=== PATIENT | female | born 2000 | race Caucasian/White ===

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

== ENCOUNTER 2019-01-15 22:40 | Emergency (ER) | payer OTHER ==
[2019-01-16 01:18] LABS: ADD UMIC YES; UR AMORPHOUS CRYSTAL FEW /HPF (NONE SEEN); UR ASCORBIC ACID NEGATIVE (NEGATIVE); UR BACTERIA FEW /HPF (NONE SEEN); UR BILIRUBIN (Dip) NEGATIVE (NEGATIVE); UR BLOOD (Dip) NEGATIVE (NEGATIVE); UR BUDDING YEAST FEW /HPF (NONE SEEN); UR CLARITY CLOUDY (CLEAR); UR COLOR AMBER (YELLOW); UR GLUCOSE (Dip) NEGATIVE (NEGATIVE); UR KETONES (Dip) NEGATIVE (NEGATIVE); UR LEUKOCYTE ESTERASE (Dip) 3+ Leu/ul (NEGATIVE); UR MUCUS MODERATE /HPF (NONE SEEN); UR NITRITE (Dip) NEGATIVE (NEGATIVE); UR RBC 38 /HPF (0-5); UR SPECIFIC GRAVITY (Dip) 1.026 (1.003-1.030); UR SQUAMOUS EPITHELIAL CELL MODERATE /HPF (FEW); UR TOTAL PROTEIN (Dip) 1+ mg/dl (NEGATIVE); UR UROBILINOGEN (Dip) NEGATIVE (NEGATIVE); UR WBC 91 /HPF (0-5)
[2019-01-16] MEDS: FLUCONAZOLE 150 MG TAB PO (01:36)
== END 2019-01-16 03:08 | disposition home or self-care (01) ==
LOC: FTE 22:40
DX: A60.09 Herpesviral infection of other urogenital tract (principal); N39.0 Urinary tract infection, site not specified; B37.9 Candidiasis, unspecified
CPT/HCPCS: 81001; 81025; 87086; 87591; 99283-25

== ENCOUNTER 2019-01-22 01:07 | Emergency (ER) | payer SELFPAY, OTHER | END 2019-01-22 03:02 | disposition left against medical advice (07) | LOC: FTE 01:07 | DX: Z53.21 Procedure and treatment not carried out due to patient leaving prior to being seen by health care provider (principal) ==

== ENCOUNTER 2019-02-27 21:35 | Emergency (ER) | payer OTHER ==
[2019-02-27] MEDS: KETOROLAC 30 MG INJ IM (23:25)
[2019-02-27] MEDS: LIDOCAINE 2%/EPI MPF (SDV) 20 ML VIAL INJ (23:25)
== END 2019-02-28 00:39 | disposition home or self-care (01) ==
LOC: FTE 02-28 00:39
DX: S51.812A Laceration without foreign body of left forearm, initial encounter (principal); W25.XXXA Contact with sharp glass, initial encounter; Y92.9 Unspecified place or not applicable
CPT/HCPCS: 12002; 81025; 96372; 99284-25